=== PATIENT | male | born 1995 | race Caucasian/White ===

== ENCOUNTER 2017-07-03 19:08 | Emergency (ER) | payer OTHER, BC ==
--- NOTE | 2017-07-03 19:29 | PDOC ---
Rapid Medical Evaluation Time Seen by Provider: 07/03/17 19:26 Medical Evaluation: I have performed a brief in-person evaluation of this patient. The patient presents with a chief complaint of: ladder fell on left foot Pertinent physical exam findings: slight limp I have ordered the following: xray of left foot The patient will proceed to the ED for further evaluation.
[2017-07-03 19:32] VITALS: BP 151/82; PULSE 96; TEMP 97.9; BMI 32.9
--- NOTE | 2017-07-03 20:43 | PDOC ---
History of Present Illness - General Chief Complaint: Injury Stated Complaint: FOOT INJURY Time Seen by Provider: 07/03/17 19:26 History Source: Patient Exam Limitations: No Limitations - History of Present Illness Initial Comments: 07/03/17 20:37 dropped ladder on left great toe today, pt has swelling to the toe. Past History - Past Medical History Allergies/Adverse Reactions: Allergies Allergy/AdvReac Type Severity Reaction Status Date / Time No Known Allergies Allergy Verified 07/03/17 19:32 Home Medications: Ambulatory Orders NK [No Known Home Medication] 07/03/17 CVA: No COPD: No - Suicide/Smoking/Psychosocial Hx Smoking History: Never smoked Have you smoked in the past 12 months: No Information on smoking cessation initiated: No Hx Alcohol Use: No Drug/Substance Use Hx: No Substance Use Type: None Review of Systems - Review of Systems Able to Perform ROS?: Yes Is the patient limited Armenian proficient: No Musculoskeletal: Yes: Symptoms Reported *Physical Exam - Vital Signs Last Vital Signs Temp Pulse Resp BP Pulse Ox 97.9 F 96 H 18 151/82 100 07/03/17 19:27 07/03/17 19:27 07/03/17 19:27 07/03/17 19:27 07/03/17 19:27 - Physical Exam General Appearance: Yes: Nourished, Appropriately Dressed HEENT: positive: EOMI, YVON Respiratory/Chest: positive: Lungs Clear Cardiovascular: positive: Regular Rhythm, Regular Rate Extremity: positive: Normal Capillary Refill, Tender (left great toe , nv intact bruising noted ) Integumentary: positive: Normal Color, Dry, Warm Neurologic: positive: Fully Oriented, Alert, Normal Mood/Affect, Normal Response , Motor Strength 5/5 Procedures - Splinting Progress: 07/03/17 20:39 hard sole shoe and lisbeth wrap to toe Medical Decision Making - Medical Decision Making 07/03/17 20:39 22 yr male with pain and bruising to left great toe a ladder fell on the toe today. xray is positive for fracture 07/03/17 20:41 *DC/Admit/Observation/Transfer Diagnosis at time of Disposition: Toe fracture, left Qualifiers: Encounter type: initial encounter Toe: great toe Fracture type: closed Phalanx : proximal Fracture alignment: nondisplaced Qualified Code(s): S92.415A - Nondisplaced fracture of proximal phalanx of left great toe, initial encounter for closed fracture - Discharge Dispostion Disposition: HOME Condition at time of disposition: Good - Referrals Referrals: Sukhjinder Lozano MD [Staff Physician] - - Patient Instructions Additional Instructions: apply ice to the toe every 2hrs for 20 minutes for the next 2 days elevate the toe as needed use the hard sole shoe and the lisbeth wrap while awake remove to sleep follow with the bark grinder listed below for follow up next week no work until cleared by the bark grinder - Post Discharge Activity Forms/Work/School Notes: Back to Work
== END 2017-07-03 20:59 | disposition home or self-care (01) ==
LOC: JERFT 19:08
DX: S92.415A Nondisplaced fracture of proximal phalanx of left great toe, initial encounter for closed fracture (principal); W20.8XXA Other cause of strike by thrown, projected or falling object, initial encounter; Y93.89 Activity, other specified; Y92.69 Other specified industrial and construction area as the place of occurrence of the external cause; Y99.0 Civilian activity done for income or pay
CPT/HCPCS: 73630-TC-LT; 99281-25